=== PATIENT | female | born 1940 | race Caucasian/White ===

== ENCOUNTER 2021-06-19 13:34 | Inpatient (IN) | payer MEDICARE, MEDICAID, SELFPAY ==
[2021-06-19 13:40] VITALS: BP 156/83; RESP 19; TEMP 35.6; BMI 26.5
--- NOTE | 2021-06-19 13:41 | XR_ITS ---
WS: [id number] Exam: XR chest 1V portable [id number] Date/Time of Exam: 06/19/2021 1:54 PM Reason For Exam: dyspnea/cough Comparison 02/22/2018. The lungs are clear and fully expanded. The heart is not enlarged. Mild prominence of the superior me diastinum unchanged. This may be due to technique. No pleural effusions. Regional bony elements are i ntact. XR/XR chest 1V portable [id number] IMPRESSION: 1. No acute cardiopulmonary finding.
--- NOTE | 2021-06-19 13:41 | ECG_ITS ---
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 Measurements Intervals [place] Rate: 126 P: 55 AK: 199 QRS: -50 QRSD: 114 T: 52 QT: 410 QTc: 594 Interpretive Statements SINUS TACHYCARDIA WITH OCCASIONAL VENTRICULAR PREMATURE COMPLEXES RIGHT BUNDLE BRANCH BLOCK LEFT ANTERIOR FASCICULAR BLOCK [QRS AXIS <= -45, QR IN I, RS IN II] Compared to ECG 02/22/2018 14:32:47 Ventricular premature complex(es) now present Left anterior fascicular block now present Sinus rhythm no longer present Electronically Signed On 06-19-2021 16:10:14 DIGITAL INTERN by Jelena Delarosa M.D. [id number]
--- NOTE | 2021-06-19 13:44 | W.ED.GENADLT ---
HPI - General Adult General: Chief complaint: Altered Mental Status Stated complaint: ALOC, weakness, poss UTI Time Seen by Provider: 06/19/21 13:41 History of Present Illness: HPI narrative: 80-year-old female brought in by EMS for altered mental status status weakness. She lives at home with her according to EMS living conditions are deplorable. He has no fever sweats or chills chills she is pleasantly confused she denies any chest pain or shortness of breath. She follows simple commands. Onset (ago): unknown Location: abdomen Severity: severe Quality: aching Pain Consistency: intermittent Relieving factors: none Exacerbating factors: none Associated symptoms: Reports confusion, malaise, nausea and weakness; Deny chest pain, cough, diaphoresis, decreased appetite, dyspnea, fevers/chills, headache(s), seizures, short of breath or vomiting Treatments prior to arrival: none Review of Systems General: Reports: ROS unobtainable due to medical condition (Minimal review of systems due to mental status and confusion) and ROS unobtainable due to mental status Const: Reports: malaise; Denies: diaphoresis Card: Denies: chest pain Resp: Denies: dyspnea GI: Reports: nausea; Denies: vomiting Neuro: Reports: confusion; Denies: headache(s) PFS ED PFSH: Medical History History of hypertension History of recurrent UTIs Surgical History No pertinent past surgical history Social History Smoking and tobacco status: never smoked Alcohol intake: never Substance/Drug Use: never Physical Exam Const: GENERAL APPEARANCE: cooperative and comfortable ORIENTATION/CONSCIOUSNESS: Yes awake HENMT: COMMON NORMALS: normocephalic, atraumatic and hearing grossly normal bilaterally HEAD & SCALP: normocephalic and atraumatic Neck/C-Spine: COMMON NORMALS: no JVD Resp: COMMON NORMALS: normal respiratory effort, No retractions, No use of accessory muscles and clear to auscultation bilaterally AUSCULTATION: clear to auscultation bilaterally Cardio: COMMON NORMALS: no JVD, regular rate, regular rhythm and No murmurs present (Cardio) RATE: regular rate RHYTHM: regular rhythm GI: COMMON NORMALS: No hepatosplenomegaly present AUSCULTATION: Yes normoactive bowel sounds PALPATION: Yes Tenderness to palpation present (GI) (Diffusely tender), No Guarding due to palpation present (GI) and Yes No hepatosplenomegaly present Extremity: COMMON NORMALS: normal to inspection, capillary refill normal, no clubbing, cyanosis or edema, no calf tenderness and no pedal edema Skin: COMMON NORMALS: no rashes or lesions noted GENERAL SKIN EXAM: no rashes or lesions noted Course Vital Signs: Vital signs: Vital Signs Temperature 98.0 F 06/24/21 15:08 Pulse Rate 76 06/24/21 15:08 Respiratory Rate 18 06/24/21 15:08 Blood Pressure 167/76 06/24/21 15:08 Pulse Oximetry 97 06/24/21 15:08 [facility] - General Adult Lab Data: Labs: Lab Results 06/19/21 06/19/21 06/19/21 13:11 13:11 13:11 WBC 26.6 10^3/uL H 10 ^3/uL (4.0-10.0) RBC 6.51 10^6/uL H 10 ^6/uL (4.1-5.3) Hgb 18.4 g/dL H g/dL (11.5-15.3) Hct 57.0 % H % (37.0-47.0) MCV 87.6 fl fl (81-99) MCH 28.3 pg pg (28.0-34.0) MCHC 32.3 g/dL g/dL (30.0-36.0) RDW 13.7 % % (12.1-15.1) Plt Count 251 10^3/cmm 10^3 /cmm (130-400) MPV 13.5 fL H fL (7.4-10.4) Neut % (Auto) 84.3 % % Lymph % (Auto) 4.9 % % [place] % (Auto) 9.4 % % Eos % (Auto) 0.0 % % Baso % (Auto) 0.3 % % Neut # (Auto) 22.39 10^3/uL H 1 0^3/uL (1.8-7.7) Lymph # (Auto) 1.3 10^3/uL 10^3/ uL (0.8-4.8) [place] # (Auto) 2.5 10^3/uL H 10^ 3/uL (0.2-0.9) Eos # (Auto) 0.0 10^3/uL 10^3/ uL (0.0-0.8) Baso # (Auto) 0.1 10^3/uL 10^3/ uL (0.0-0.1) Nucleated RBC % (a uto) 0 % % Nucleated RBCs # 0.0 /100WBC /100W BC Sodium 140 mmol/L mmol/L (136-145) Potassium 3.0 mmol/L L mmol /L (3.5-5.1) Chloride 96 mmol/L L mmol/ L (98-107) Carbon Dioxide 19 mmol/L L mmol/ L (22-29) Anion Gap 28.0 H (5-19) BUN 25 mg/dL H mg/dL (8-23) Creatinine 1.4 mg/dL H mg/dL (0.5-0.9) GFR Calculation Not Reportable Glucose 223 mg/dL H mg/dL (65-115) Estimat Average Gl ucose 120 Hemoglobin A1c 5.8 % % (4.0-6.0) Calculated Osmolal ity 301 mOsm/kg H mOs m/kg (285-295) Lactic Acid Calcium 9.9 mg/dL mg/dL (8.5-10.5) Magnesium 2.4 mg/dL H mg/dL (1.7-2.3) Total Bilirubin 1.2 mg/dL mg/dL (0.15-1.2) AST 27 U/L U/L (0-32) ALT 21 U/L U/L (0-33) Alkaline Phosphata se 104 IU/L IU/L (35-105) Creatine Kinase 419 U/L H* U/L (26-192) C-Reactive Protein NT-Pro-B Natriuret Pep Total Protein 7.8 g/dL g/dL (6.6-8.7) Albumin 3.6 g/dL g/dL (3.5-5.2) Globulin 4.2 g/dL g/dL (1.3-4.6) Lipase 16 U/L U/L (13-60) Procalcitonin Urine Color Urine Appearance Urine pH Ur Specific Gravit y Urine Protein Urine Glucose (UA) Urine Ketones Urine Blood Urine Nitrate Urine Bilirubin Urine Urobilinogen Ur Leukocyte Gini ase Urine RBC Urine WBC Ur Squamous Epith Cells Amorphous Sediment Urine Bacteria Urine Mucus 06/19/21 06/19/21 06/19/21 13:42 14:05 14:15 WBC RBC Hgb Hct MCV MCH MCHC RDW Plt Count MPV Neut % (Auto) Lymph % (Auto) [place] % (Auto) Eos % (Auto) Baso % (Auto) Neut # (Auto) Lymph # (Auto) [place] # (Auto) Eos # (Auto) Baso # (Auto) Nucleated RBC % (a uto) Nucleated RBCs # Sodium Potassium Chloride Carbon Dioxide Anion Gap BUN Creatinine GFR Calculation Glucose Estimat Average Gl ucose Hemoglobin A1c Calculated Osmolal ity Lactic Acid 5.2 mmol/L H* mmo l/L (0.5-2.2) Calcium Magnesium Total Bilirubin AST ALT Alkaline Phosphata se Creatine Kinase C-Reactive Protein 209.1 mg/L H mg/L (0.0-4.9) NT-Pro-B Natriuret Pep 3733 pg/mL H pg/m L (0-450) Total Protein Albumin Globulin Lipase Procalcitonin 0.62 ng/mL H ng/m L (0-0.5) Urine Color Yellow (Yellow) Urine Appearance Cloudy (CLEAR) Urine pH 5 (5-7) Ur Specific Gravit y 1.020 (1.005-1.030) Urine Protein 1+ H (Negative) Urine Glucose (UA) Norm (Normal) Urine Ketones Negative (Negative) Urine Blood 3+ H (Negative) Urine Nitrate Negative (Negative) Urine Bilirubin Neg (Negative) Urine Urobilinogen Norm mg/dL mg/dL (Negative) Ur Leukocyte Igni ase 2+ H (Negative) Urine RBC 5-10 /hpf H /hpf (0-2) Urine WBC 25-40 /hpf H /hpf (0-5) Ur Squamous Epith Cells 0-4 /hpf H /hpf (0-5) Amorphous Sediment Not Reportable Urine Bacteria 4+ /hpf H /hpf (NONE) Urine Mucus 1+ /hpf /hpf Discharge Plan Discharge Patient Disposition: Admitted As Inpatient Admit Provider: Jame Elliott Clinical Impression: UTI (urinary tract infection), Severe sepsis, Acute encephalopathy, Acute kidney injury, Rhabdomyolysis Condition: Stable Discharge Diet: Regular Discharge Activity: Increase activity as tolerated 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
[2021-06-19 13:52] LABS: Basophils # 0.1 10^3/uL (0.0-0.1); Basophils % 0.3 %; Hemoglobin 18.4 g/dL (11.5-15.3); Lymphocytes # 1.3 10^3/uL (0.8-4.8); Lymphocytes % 4.9 %; Mean Corpuscular HGB Conc 32.3 g/dL (30.0-36.0); Mean Corpuscular Hemoglobin 28.3 pg (28.0-34.0); Mean Corpuscular Volume 87.6 fl (81-99); Mean Platelet Volume 13.5 fL (7.4-10.4); Monocytes # 2.5 10^3/uL (0.2-0.9); Monocytes % 9.4 %; Neutrophils # 22.39 10^3/uL (1.8-7.7); Neutrophils % 84.3 %; Nucleated Red Blood Cells % 0 %; Platelet Count 251 10^3/cmm (130-400); Red Blood Count 6.51 10^6/uL (4.1-5.3); Red Cell Distribution Width 13.7 % (12.1-15.1); White Blood Count 26.6 10^3/uL (4.0-10.0)
[2021-06-19 14:13] LABS: Alanine Aminotransferase 21 U/L (0-33); Albumin Level 3.6 g/dL (3.5-5.2); Alkaline Phosphatase 104 IU/L (35-105); Aspartate Amino Transferase 27 U/L (0-32); Blood Urea Nitrogen 25 mg/dL (8-23); Calcium 9.9 mg/dL (8.5-10.5); Carbon Dioxide 19 mmol/L (22-29); Chloride 96 mmol/L (98-107); Globulin 4.2 g/dL (1.3-4.6); Glucose 223 mg/dL (65-115); Lipase 16 U/L (13-60); Magnesium 2.4 mg/dL (1.7-2.3); Osmolality Calculated 301 mOsm/kg (285-295); Sodium 140 mmol/L (136-145); Total Bilirubin 1.2 mg/dL (0.15-1.2); Total Protein 7.8 g/dL (6.6-8.7)
[2021-06-19 14:17] LABS: Creatine Phosphokinase 419 U/L (26-192)
[2021-06-19 14:25] LABS: Bilirubin Urine Neg (Negative); Blood Urine 3+ (Negative); Glucose Urine UA Norm (Normal); Ketones Urine Negative (Negative); Nitrate Urine Negative (Negative); Protein Urine 1+ (Negative); Urine Appearance Cloudy (CLEAR); Urine Color Yellow (Yellow); pH Urine 5 (5-7)
[2021-06-19 14:26] LABS: Add Urine Culture? Yes; Add Urine Microscopic? YES; Bacteria Urine 4+ /hpf; Leukocyte Esterase Urine 2+ (Negative); Mucus Urine 1+ /hpf; Squamous Epithelial Cell Urine 0-4 /hpf (0-5); Urobilinogen Urine Norm (Negative); WBC Urine 25-40 /hpf (0-5)
--- NOTE | 2021-06-19 14:34 | PC.PHAR ---
PTS STATES THE PT DOESNT TAKE ANY RX OR OTC MEDICATIONS- STATES THE PT HASNT TAKEN A ASPIRIN IN MONTHS AND STATES SHE USE TO TAKE BP MEDS BUT HASNT TAKEN IN YEARS-PTS STATES HE THINKS THE PT NEEDS TO GO TO A GROUP HOME STATES HE CANT TAKE CARE OF HER ANY MORE-TOLD STU RN IN THE ED STATES SHE WILL LET THE NURSE KNOW AND CASE MANAGEMENT SHOULD CONTACT THE
[2021-06-19 14:49] LABS: Lactic Sepsis W/Reflex 5.2 mmol/L (0.5-2.2)
[2021-06-19 14:50] VITALS: BP 186/94; PULSE 93; RESP 16; O2SAT 92
[2021-06-19] MEDS: sodium chloride 0.9% 1,000 ML 999 ML IV (14:59)
[2021-06-19 16:07] LABS: Reflex Lactate Order REFLEX LACTIC ORDERD
[2021-06-19 17:59] LABS: ABG PCO2 27.6 mmHg (35-45); ABG PH Result 7.48 (7.35-7.45); Base Excess ABG -1.6 mmol/L (-2.0-2.0); Blood Gas Allen Test Pos; Blood Gas Operator Identificat CAK; Blood Gas Sample Site Radial, left; Blood Gas Sample Type Arterial; HCO3 ABG 20.4 mmol/L (22-26); Oxygen Device ROOM AIR; PO2 ABG 64.6 mmHg (80.0-100.0)
[2021-06-19] MEDS: lidocaine 1% 5 ML in potassium chloride premix 100 ML 25 ML IV (18:01)
[2021-06-19 18:06] LABS: Lactic Acid level (Lactate) 3.7 mmol/L (0.5-2.2)
[2021-06-19] MEDS: cefTRIAXone 2,000 MG in sodium chloride 0.9% (plus) 50 ML 100 MG IV (18:06)
--- NOTE | 2021-06-19 18:09 | PM.HP ---
Providers/Chief Complaint Chief Complaint: ALOC, weakness, poss UTI History of Present Illness Beth Manzo is a 80 year old female with a past medical history of hypertension, dementia, who presents to [facility] due to weakness and altered mental status. Currently patient is alert, does not follow commands, does not know the date, does not know the time, does not know who the president is, cannot answer questions, she does have spontaneous movement upper and lower extremities, pupils are equal round reactive to light, does pull away from the light, blood pressure 186/94, pulse 93, respiratory 16, saturation 92% on room air, maintaining her airway. Most of the history was obtained by , tells me that patient has history of dementia, recently she is becoming more forgetful, has had profound short-term memory loss such that he has to repeat himself to her every 5 minutes, he tells me that she is becoming more weak, and now she is not able to walk so he cannot take care of her, that is why he sent her to the emergency room because he cannot take care of her she still profoundly weak and more forgetful. He thinks that she needs to go to the assisted. No recent fevers, no cough, no new exposure to COVID-19. No history of heart attacks to his knowledge. No history of strokes to his knowledge. No history of diabetes to his knowledge. She does have recurrent urinary tract infections he tells me, she gets them frequently, but she has not seen a physician in a long time, in many years, he denies a history of nephrolithiasis or kidney stones. In the emergency room patient was found to have severe sepsis secondary to UTI, white blood cell count 26.6, lactic acid 5.2, anion gap 28, ketones negative, creatinine 1.4, blood sugar 223, CPK 419, after fluid boluses repeat lactic acid 3.7, she remains hypertensive, no tachycardia, on room air. UA with evidence of UTI. Chest x-ray no focal pneumonia. Review of Systems General: Reports: ROS unobtainable due to medical condition Medications/Allergies Home Medications Medication Instructions Recorded Confirmed Last Taken Type No Known Home Medications 06/19/21 06/19/21 Unknown History Allergies Allergy/AdvReac Type Severity Reaction Status Date / Time No Known Allergies Allergy Verified 06/19/21 14:36 Additional Medication Information does not know any pertinent family history does not know any pertinent surgical history PFSH Acute PFSH: Medical History (Updated 06/19/21 @ 18:18 by Jame Elliott MD) History of hypertension History of recurrent UTIs Surgical History (Updated 06/19/21 @ 18:13 by Jame Elliott MD) No pertinent past surgical history Social History (Updated 06/19/21 @ 18:14 by Jame Elliott MD) Smoking and tobacco status: never smoked Alcohol intake: never Substance/Drug Use: never Vitals/I&O/Wt Last Vital Signs Temp 96.1 F L 06/19/21 13:40 Pulse 93 06/19/21 14:50 Resp 16 06/19/21 14:50 BP 186/94 06/19/21 14:50 Pulse Ox 92 06/19/21 14:50 06/19/21 06/19/21 06/19/21 06:59 14:59 22:59 Intake Total 1000 / 1000 Balance 1000 / 1000 Weight last 48 hrs Weight 65.771 kg Physical Exam Const: COMMON NORMALS: no acute distress GENERAL APPEARANCE: cooperative and comfortable ORIENTATION/CONSCIOUSNESS: Yes awake and Yes confused; not oriented to person, not oriented to place and not oriented to time HENMT: COMMON NORMALS: normocephalic HEAD & SCALP: normocephalic Eye: COMMON NORMALS: Equal, round and reactive pupils present and EOMs intact bilaterally GENERAL EYE: appearance normal, both eyes and all related structures PUPIL: Yes Equal, round and reactive pupils present Neck/C-Spine: COMMON NORMALS: full ROM and no lymphadenopathy THYROID: Thyroid normal Lymph: LYMPHATIC: no lymphadenopathy noted Resp: COMMON NORMALS: normal respiratory effort, No retractions, No use of accessory muscles and clear to auscultation bilaterally AUSCULTATION: clear to auscultation bilaterally Cardio: COMMON NORMALS: regular rate, regular rhythm, S1 normal heart sound present, S2 normal heart sound present, No gallops present (Cardio), No clicks present (Cardio) and No murmurs present (Cardio) RATE: regular rate RHYTHM: regular rhythm HEART SOUNDS: S1 normal heart sound present and S2 normal heart sound present GI: COMMON NORMALS: Normal to inspection, nondistended, normoactive bowel sounds present, Soft to palpation and non-tender Extremity: COMMON NORMALS: no pedal edema Neuro: COMMON NORMALS: moves all extremities Urinary Catheter Management^: Triplett: Cath Placed During This Visit: yes Urinary Catheter Date of Insertion: 06/19/21 Urinary Catheter Time of Insertion: 14:10 Data : 06/19/21 13:11 06/19/21 13:11 Micro: Microbiology 06/19/21 15:55 Blood Culture - Preliminary Blood SPECIMEN COLLECTED 06/19/21 15:40 Blood Culture - Preliminary Blood SPECIMEN COLLECTED A&P Assessment and plan (1) Severe sepsis: -Secondary to UTI -With ELVA -Room with rhabdomyolysis -With increased anion gap, normal pH, normal ketones, hyperglycemia -Dehydration -Lactic acidosis Plan: -CT scan abdomen pelvis to evaluate for obstructive uropathy and/or pyelonephritis -CT of the head given altered mental status -A1c, BMP, pro-Bobby, CRP -Follow urine cultures, blood cultures -Keep n.p.o., monitor mentation -Monitor blood sugars, monitor A1c -Vancomycin, Zosyn -Monitor blood pressures, maintain MAP more than 65, currently hypertensive -Gentle IV hydration -For now full code -Lovenox for DVT prophylaxis Status: Acute (2) Lactic acidosis: Status: Acute (3) UTI (urinary tract infection): Status: Acute (4) Hyperglycemia: Status: Acute (5) Acute kidney injury: Status: Acute (6) Rhabdomyolysis: Status: Acute (7) Acute encephalopathy: Status: Acute Attestations Medical Necessity Statement*: Patient requires hospitalization for severe sepsis secondary to UTI, lactic acidosis, acute encephalopathy Coding Level of Care Code 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
[2021-06-19 18:10] LABS: Ketone (Acetest) Serum Negative (Negative)
[2021-06-19 18:16] LABS: NT Pro B Type Natriuretic Pept 3733 pg/mL (0-450); Procalcitonin 0.62 ng/mL (0-0.5)
--- NOTE | 2021-06-19 18:19 | CTR_ITS ---
PROCEDURE INFORMATION: Exam: CT Abdomen And Pelvis Without Contrast Exam date and time: 06/19/2021 6:19 PM Age: 80 years old Clinical indication: Other: UTI, AMS; Additional info: UTI, sepsis TECHNIQUE: Imaging protocol: Computed tomography of the abdomen and pelvis without contrast. Radiation optimization: All CT scans at this facility use at least one of these dose optimization techniques: automated exposure control; mA and/or kV adjustment per patient size (includes targeted exams where dose is matched to clinical indication); or iterative reconstruction. COMPARISON: CR XR chest 1V portable [id number] 06/19/2021 2:43 PM RADIATION DOSE METRICS: Total DLP (mGy-cm): 1390.69 FINDINGS: Lungs: Mild atelectasis in the lung bases. Pleural spaces: Trace pleural effusions. Heart: Coronary artery calcifications. Diaphragm: Hiatal hernia. Liver: Normal. No mass. Gallbladder and bile ducts: Multiple calcified stones in the gallbladder. No visible wall thickening. The bile ducts are normal. Pancreas: Normal. No ductal dilation. Spleen: Calcified granuloma in the spleen. Adrenal glands: 2.2 cm low-density nodule in the right adrenal gland, Hounsfield units measuring 10 or less. The left adrenal is normal. Kidneys and ureters: The mild perinephric stranding is most likely chronic. The kidneys are otherwise unremarkable. No calculus or hydronephrosis. Stomach and bowel: Diverticulosis of the distal colon without diverticulitis. The small bowel is unremarkable. No wall thickening or obstruction. Appendix: The appendix is not visualized. No secondary signs of appendicitis. Intraperitoneal space: Unremarkable. No free air. No significant fluid collection. Vasculature: Atherosclerotic calcifications. No aneurysm. Lymph nodes: Unremarkable. No enlarged lymph nodes. Urinary bladder: Triplett catheter in a decompressed urinary bladder. No visible wall thickening. Reproductive: The uterus and ovaries are absent. Bones/joints: Mild degenerative changes of the spine. No acute fracture. Soft tissues: Small fat containing right inguinal hernia. Subcutaneous fat stranding and skin thickening in the posterior right flank region. CT/CT kidney stone [id number] IMPRESSION: 1. Mild perinephric stranding is most likely chronic and physiologic. Pyelonephritis cannot be entirely excluded. Clinical correlation recommended. 2. Cholelithiasis. 3. Diverticulosis of the distal colon. 4. Skin thickening and subcutaneous fat stranding in the posterior right flank region. Cellulitis is not excluded. 5. Probable 2.2 cm adenoma in the right adrenal gland. COMMENTS: Consistent with the [employer]'s Incidental Findings Committee white paper (J Am Jane Radiol 2017): For any incidental adrenal lesion greater than 1 cm but less than 4 cm classified in this report as benign, likely benign, or containing fat (including classification as an adenoma or myelolipoma), no follow-up imaging is recommended per consensus recommendations based on imaging criteria. Further lab evaluation could be pursued if warranted based on clinical findings. Radiation Dose CTDIVOL = (mGy): DLP = 1390.69 (mGy-cm)
--- NOTE | 2021-06-19 18:20 | CTR_ITS ---
PROCEDURE INFORMATION: Exam: CT Head Without Contrast Exam date and time: 06/19/2021 6:20 PM Age: 80 years old Clinical indication: Altered mental status/memory loss; Additional info: AMS TECHNIQUE: Imaging protocol: Computed tomography of the head without contrast. Radiation optimization: All CT scans at this facility use at least one of these dose optimization techniques: automated exposure control; mA and/or kV adjustment per patient size (includes targeted exams where dose is matched to clinical indication); or iterative reconstruction. 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 Mild atrophy and mild white matter chronic microvascular changes are noted. No hemorrhage or evidence of acute infarction. Cerebral ventricles: No ventriculomegaly. Paranasal sinuses: Visualized sinuses are unremarkable. No fluid levels. Mastoid air cells: Visualized mastoid air cells are well aerated. Bones/joints: Unremarkable. No acute fracture. Soft tissues: Unremarkable. CT/CT head wo con* [id number] IMPRESSION: No acute intracranial abnormality Radiation Dose CTDIVOL = (mGy): DLP = 1760.24 (mGy-cm)
[2021-06-19 18:27] LABS: C Reactive Protein 209.1 mg/L (0.0-4.9)
[2021-06-19 19:18] VITALS: BP 183/79; PULSE 98; RESP 16; O2SAT 94
--- NOTE | 2021-06-19 20:07 | PC.NURSE ---
PT. removed her IV from her left arm. Pt. is confused and very pleasant , but does not know what is going on. Restraints were ordered by Dr. Marcum and applied for the patients safety.
[2021-06-19 20:30] LABS: Estmated Average Glucose 120; Hemoglobin A1C 5.8 % (4.0-6.0)
[2021-06-19 21:07] LABS: Thyroid Stimulating Hormone 6.54 uIU/mL (0.27-4.20)
[2021-06-19] MEDS: sodium chlor 0.9% + KCl 20 mEq 20 MEQ/1,000 ML BAG 125 MEQ IV (21:10)
[2021-06-19] MEDS: famotidine 20 mg/2 mL INJ IVP (21:11)
[2021-06-19] MEDS: enoxaparin 30 mg/0.3 mL Syringe SUBCUT (21:11)
[2021-06-19] MEDS: vancomycin 1,000 MG in sodium chloride 0.9% 250 ML 250 MG IV (22:31)
[2021-06-20] VITALS (8 sets, daily range): BP systolic 126–162; BP diastolic 62–74; PULSE 65–83; RESP 14–18; TEMP 36.5–37.3; O2SAT 90–99
[2021-06-20] MEDS: piperacillin-tazobactam 3.375 GM in sodium chloride 0.9% (plus) 50 ML IV ×4 (00:59→23:34)
--- NOTE | 2021-06-20 03:45 | XRR_ITS ---
PROCEDURE INFORMATION: Exam: XR Left Hip Exam date and time: 06/20/2021 3:45 AM Age: 80 years old Clinical indication: Hip pain; Left hip; Patient HX: Pain with bruising. No known injury. Patient in soft restraints. Best films obtained. TECHNIQUE: Imaging protocol: XR Left hip. Views: 2 or 3 views hip with pelvis when performed. COMPARISON: No relevant prior studies available. FINDINGS: Bones/joints: There is no acute fracture or dislocation. If symptoms persist, follow-up imaging in several days may be useful to exclude an occult fracture. No other significant acute bone or joint abnormality. Mild arthritic changes involving the left hip. Soft tissues: No significant acute finding. XR/XR hip LT 2-3V wo/w pel* [id number] IMPRESSION: No acute fracture or dislocation. Radiation Dose CTDIVOL = (mGy): DLP = (mGy-cm)
--- NOTE | 2021-06-20 04:14 | PC.NURSE ---
Complete bed bath performed with 2 nurse assist. Patient cried out in pain with left hip. Bruising noted to left hip. Physician notified with orders given.
[2021-06-20] MEDS: sodium chlor 0.9% + KCl 20 mEq 20 MEQ/1,000 ML BAG 125 MEQ IV ×2 (05:23→17:28)
[2021-06-20 06:58] LABS: Glucose Point of Care 102 mg/dL (70-110)
[2021-06-20 07:39] LABS: Basophils % 0.3 %; Eosinophils % 0.1 %; Hematocrit 45.4 % (37.0-47.0); Hemoglobin 14.8 g/dL (11.5-15.3); Lymphocytes # 1.8 10^3/uL (0.8-4.8); Lymphocytes % 12.2 %; Mean Corpuscular HGB Conc 32.6 g/dL (30.0-36.0); Mean Corpuscular Hemoglobin 28.8 pg (28.0-34.0); Mean Corpuscular Volume 88.3 fl (81-99); Mean Platelet Volume 13.6 fL (7.4-10.4); Monocytes # 1.6 10^3/uL (0.2-0.9); Monocytes % 10.4 %; Neutrophils # 11.38 10^3/uL (1.8-7.7); Neutrophils % 76.5 %; Nucleated Red Blood Cells % 0 %; Platelet Count 163 10^3/cmm (130-400); Red Blood Count 5.14 10^6/uL (4.1-5.3); Red Cell Distribution Width 14.1 % (12.1-15.1); White Blood Count 14.9 10^3/uL (4.0-10.0)
[2021-06-20 08:02] LABS: Lactic Sepsis W/Reflex 1.1 mmol/L (0.5-2.2)
[2021-06-20 08:30] LABS: Alanine Aminotransferase 17 U/L (0-33); Albumin Level 2.7 g/dL (3.5-5.2); Alkaline Phosphatase 87 IU/L (35-105); Anion Gap 13.8 (5-19); Aspartate Amino Transferase 26 U/L (0-32); Blood Urea Nitrogen 32 mg/dL (8-23); Calcium 8.8 mg/dL (8.5-10.5); Carbon Dioxide 21 mmol/L (22-29); Chloride 110 mmol/L (98-107); Globulin 3.2 g/dL (1.3-4.6); Glucose 113 mg/dL (65-115); Magnesium 2.2 mg/dL (1.7-2.3); Osmolality Calculated 300 mOsm/kg (285-295); Potassium 3.8 mmol/L (3.5-5.1); Sodium 141 mmol/L (136-145); Total Bilirubin 0.6 mg/dL (0.15-1.2); Total Protein 5.9 g/dL (6.6-8.7)
[2021-06-20 08:34] LABS: Estmated Average Glucose 114; Hemoglobin A1C 5.6 % (4.0-6.0)
[2021-06-20] MEDS: lidocaine 5% Patch 1 PATCH TOPICAL (08:58)
[2021-06-20] MEDS: famotidine 20 mg/2 mL INJ IVP ×3 (09:16→20:44)
[2021-06-20 11:04] LABS: Glucose Point of Care 97 mg/dL (70-110)
--- NOTE | 2021-06-20 16:49 | PM.PN ---
Subjective Subjective: Interval history: Patient was seen this morning, she is quite sleepy, she does arouse, she tells me that she is doing okay, she is able to follow some commands, but is alert to person, not to place, not to time, afebrile overnight, normotensive, good urine output, overnight she did have a fall, no head trauma, no loss of consciousness hip x-ray was unremarkable, she had no pain complaints this morning Vitals/I&O/Wt Last Vital Signs Temp 98.1 F 06/20/21 16:00 Pulse 80 06/20/21 16:00 Resp 16 06/20/21 16:00 BP 149/70 06/20/21 16:00 Pulse Ox 94 06/20/21 16:00 06/20/21 06/20/21 06/20/21 06:59 14:59 22:59 Intake Total 1400 / 2450 155 / 155 1000 / 1155 Balance 1400 / 1750 155 / 155 1000 / 1155 Weight last 48 hrs Weight 65.771 kg Physical Exam Const: COMMON NORMALS: no acute distress ORIENTATION/CONSCIOUSNESS: Yes awake and Yes oriented to person; not oriented to place and not oriented to time Resp: COMMON NORMALS: normal respiratory effort, No retractions, No use of accessory muscles and clear to auscultation bilaterally AUSCULTATION: clear to auscultation bilaterally Cardio: COMMON NORMALS: regular rate, regular rhythm, S1 normal heart sound present and S2 normal heart sound present RATE: regular rate RHYTHM: regular rhythm HEART SOUNDS: S1 normal heart sound present and S2 normal heart sound present GI: COMMON NORMALS: Normal to inspection, nondistended, normoactive bowel sounds present, Soft to palpation and non-tender PALPATION: Yes Soft to palpation Extremity: COMMON NORMALS: no pedal edema Neuro: SENSORIUM/ORIENTATION: Yes oriented to person, No oriented to place and No oriented to time Urinary Catheter Management^: Triplett: Cath Placed During This Visit: yes Reason for Continuing Indwelling Catheter: Assist Healing of Perineal & Sacral Wounds- Incontinent Patients Urinary Catheter Date of Insertion: 06/19/21 Urinary Catheter Time of Insertion: 14:10 Data : 06/20/21 06:57 06/20/21 06:57 Micro: Microbiology 06/19/21 15:55 Blood Culture - Preliminary Blood NEGATIVE TO DATE 11/19/21 15:40 Blood Culture - Preliminary Blood NEGATIVE TO DATE 06/19/21 14:05 Urine Culture - Preliminary Urine,Clean Catch Gram Negative Rods A&P Assessment and plan (1) Severe sepsis: -Secondary to UTI -With ELVA -Room with rhabdomyolysis -With increased anion gap, normal pH, normal ketones, hyperglycemia -Dehydration -Lactic acidosis -CT scan abdomen pelvis mild perinephric stranding Plan -Follow urine cultures, blood cultures -Keep n.p.o., monitor mentation -Vancomycin, Zosyn -Monitor blood pressures, maintain MAP more than 65, currently hypertensive -Gentle IV hydration -For now full code -Lovenox for DVT prophylaxis Status: Acute (2) Lactic acidosis: Status: Acute (3) UTI (urinary tract infection): Status: Acute (4) Hyperglycemia: Status: Acute (5) Acute kidney injury: Status: Acute (6) Rhabdomyolysis: Status: Acute (7) Acute encephalopathy: Status: Acute (8) Pyelonephritis due to Escherichia coli: Status: Acute Attestations Medical Necessity Statement*: Patient requires hospitalization, inpatient, greater than 2 minutes, for severe sepsis sec to UTI, pyelonephritis, Coding Level of Care Code 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
--- NOTE | 2021-06-20 16:59 | USR_ITS ---
PROCEDURE INFORMATION: Exam: US Retroperitoneal; Complete; Kidneys and Bladder Exam date and time: 06/20/2021 4:59 PM Age: 80 years old Clinical indication: Other: UTI, sepsis TECHNIQUE: Imaging protocol: Real-time ultrasound of the retroperitoneum with image documentation. Complete exam focused on the kidneys and bladder. COMPARISON: CT kidney stone [id number] 06/19/2021 6:40 PM FINDINGS: Gallbladder: A couple shadowing gallstones noted in the gallbladder body measuring up to 2.3 cm in size. Right kidney: Renal cortex echogenicity is within normal limits. The right kidney measures 8.9 cm in length. No evident stones. No hydronephrosis. Left kidney: Renal cortex echogenicity is within normal limits. The left kidney measures 9.7 cm in length. No evident stones. No hydronephrosis. Urinary bladder: Triplett catheter noted within a decompressed bladder. US/US renal BI* [id number] IMPRESSION: 1. Unremarkable kidneys and bladder. 2. Cholelithiasis. Radiation Dose CTDIVOL = (mGy): DLP = (mGy-cm)
[2021-06-20] MEDS: dextrose 50% syringe 50 mL IVP (17:05)
[2021-06-20 17:14] LABS: Glucose Point of Care 68 mg/dL (70-110)
[2021-06-20 17:32] LABS: Glucose Point of Care 127 mg/dL (70-110)
--- NOTE | 2021-06-20 19:14 | PC.NURSE ---
ROUNDING New IV placed at shift change. Picking at it already and needs redirection often to keep from pulling it back out. Otherwise is pleasant and cooperative. Will be pts nurse/1:1 liyah culver
[2021-06-20] MEDS: enoxaparin 30 mg/0.3 mL Syringe SUBCUT (20:11)
--- NOTE | 2021-06-20 20:39 | PC.NURSE ---
CONFUSION/AGITATION Very confused and wanting to get up to go to her bed. Arguing with nurse and not accepting that she is in the hospital and in bed already. Needs frequent redirecton to keep from pulling IV out. Also was pulling on her catheter
[2021-06-20 21:17] LABS: Glucose Point of Care 111 mg/dL (70-110)
[2021-06-21] MEDS: sodium chlor 0.9% + KCl 20 mEq 20 MEQ/1,000 ML BAG 125 MEQ IV (01:44)
[2021-06-21 03:40] VITALS: BP 153/75; PULSE 85; RESP 16; TEMP 36.8
--- NOTE | 2021-06-21 05:09 | PC.NURSE ---
SHIFT SUMMARY Has been very confused tonight. Tries to take IV and catheter out and has been repeatedly redirected for this. Gets agitated with nurse for not getting a knife and cutting them loose. Is quite pleasant most of the time. Kept thinking she needed to get up and go to bed. Has not slept. Eyes closed few times and thought she was going to sleep but then awake. Hears any little noise. IV infusing at 125ml/hr rate. Was up to BSC X1 with max assist for BM then later incont of BM with CLC done. Does not like to be moved or turned and refusing to stay off right buttock where where she has a very reddened area and small skin break. Always says she can move by herself but then will not move.
[2021-06-21] MEDS: acetaminophen 325 mg Tablet 650 MG PO ×2 (05:40→13:07)
[2021-06-21 07:08] LABS: Glucose Point of Care 94 mg/dL (70-110)
[2021-06-21 08:00] VITALS: BP 128/87; PULSE 74; RESP 16; TEMP 36.4; O2SAT 99
[2021-06-21] MEDS: vancomycin 1,000 MG in sodium chloride 0.9% 250 ML 250 MG IV (08:06)
[2021-06-21] MEDS: lidocaine 5% Patch 1 PATCH TOPICAL (08:23)
[2021-06-21] MEDS: piperacillin-tazobactam 3.375 GM in sodium chloride 0.9% (plus) 50 ML IV ×2 (09:24→17:40)
[2021-06-21] MEDS: famotidine 20 mg/2 mL INJ IVP ×2 (09:39→19:54)
[2021-06-21 11:04] VITALS: BP 168/82; PULSE 77; RESP 15; TEMP 36.3; O2SAT 100
[2021-06-21 11:21] LABS: Glucose Point of Care 87 mg/dL (70-110)
--- NOTE | 2021-06-21 15:19 | P.PN_ITS ---
Subjective Subjective: Interval history: Patient was seen this morning, daughter, and granddaughter are at bedside, she is alert to person, not to place, not to time, she follows commands, no complaints overnight, no fevers, chills, no nausea, no vomiting Vitals/I&O/Wt Last Vital Signs Temp 97.4 F L 06/21/21 11:04 Pulse 77 06/21/21 11:04 Resp 15 06/21/21 11:04 BP 168/82 06/21/21 11:04 Pulse Ox 100 06/21/21 11:04 06/21/21 06/21/21 06/21/21 06:59 14:59 22:59 Intake Total 1290 / 2695 1498.333 / 1498.333 Output Total 1650 / 1650 850 / 850 Balance -360 / 1045 648.333 / 648.333 Physical Exam Const: COMMON NORMALS: no acute distress ORIENTATION/CONSCIOUSNESS: Yes awake and Yes oriented to person; not oriented to place and not oriented to time Neck/C-Spine: COMMON NORMALS: no JVD Resp: COMMON NORMALS: normal respiratory effort, No retractions, No use of accessory muscles and clear to auscultation bilaterally AUSCULTATION: clear to auscultation bilaterally Cardio: COMMON NORMALS: no JVD, regular rate, regular rhythm, S1 normal heart sound present and S2 normal heart sound present RATE: regular rate RHYTHM: regular rhythm HEART SOUNDS: S1 normal heart sound present and S2 normal heart sound present GI: COMMON NORMALS: Normal to inspection, nondistended, normoactive bowel sounds present, Soft to palpation and non-tender PALPATION: Yes Soft to palpation Extremity: COMMON NORMALS: no pedal edema Neuro: SENSORIUM/ORIENTATION: Yes oriented to person, No oriented to place and No oriented to time Psych: COMMON NORMALS: mental status grossly normal Urinary Catheter Management^: Triplett: Cath Placed During This Visit: yes Reason for Continuing Indwelling Catheter: Assist Healing of Perineal & Sacral Wounds- Incontinent Patients Urinary Catheter Date of Insertion: 06/19/21 Urinary Catheter Time of Insertion: 14:10 Data : 06/20/21 06:57 06/20/21 06:57 Micro: Microbiology 06/19/21 14:05 Urine Culture - Final Urine,Clean Catch Escherichia coli 06/19/21 15:55 Blood Culture - Preliminary Blood NEGATIVE TO DATE 06/19/21 15:40 Blood Culture - Preliminary Blood NEGATIVE TO DATE A&P Assessment and plan (1) Severe sepsis: -Secondary to UTI -With ELVA -with rhabdomyolysis -With increased anion gap, normal pH, normal ketones, hyperglycemia -Dehydration -Lactic acidosis -CT scan of the abdomen pelvis shows mild perinephric stranding Plan: -Follow urine cultures shows E. coli pansensitive, blood cultures negative to date -Advance diet as tolerated, soft mechanical diet -Stop vancomycin, continue Zosyn -Monitor blood pressures, maintain MAP more than 65, currently hypertensive -Stop IV hydration -For now full code -Lovenox for DVT prophylaxis -PT OT, speech therapy -Working on placement to care home Status: Acute (2) Lactic acidosis: Status: Acute (3) UTI (urinary tract infection): Status: Acute (4) Hyperglycemia: Status: Acute (5) Acute kidney injury: Status: Acute (6) Rhabdomyolysis: Status: Acute (7) Acute encephalopathy: Status: Acute (8) Pyelonephritis due to Escherichia coli: Status: Acute Attestations Medical Necessity Statement*: Patient requires hospitalization due to UTI, pyelonephritis Coding Level of Care Code Acute Assistant Professor Sculpture for [facility] Fwd Diagnoses Severe sepsis A41.9; R65.20 Lactic acidosis E87.2 UTI (urinary tract infection) N39.0 Hyperglycemia R73.9 Acute kidney injury N17.9 Rhabdomyolysis M62.82 Acute encephalopathy G93.40 Pyelonephritis due to Escherichia coli N12; B96.20
[2021-06-21 16:00] VITALS: BP 135/62; PULSE 65; RESP 16; TEMP 36.9; O2SAT 99
[2021-06-21 17:23] LABS: Glucose Point of Care 154 mg/dL (70-110)
--- NOTE | 2021-06-21 19:41 | PC.NURSE ---
nurse notified dr of pt BS of 152 with no sliding scale in place and dr informed this nurse that BS will be monitored and to call if they are greater than 200.
--- NOTE | 2021-06-21 19:43 | PC.NURSE ---
was notified that sore to right hip of pt had opened and this nurse asked what drsg to cover with, stated to cover with optifoam.
[2021-06-21 19:48] VITALS: BP 160/63; PULSE 64; RESP 18; TEMP 36.3; O2SAT 99
[2021-06-21] MEDS: enoxaparin 30 mg/0.3 mL Syringe SUBCUT (19:53)
[2021-06-21 20:39] LABS: Glucose Point of Care 138 mg/dL (70-110)
--- NOTE | 2021-06-21 21:43 | PC.NURSE ---
Pt very fidgety, pulling at lambert catheter & iv, states i just don't know what to do . Nurse tries to distract patient, this lasts for just a few minutes & patient is back at trying to pull at lines. Will continue to attempt to orientate pt.
[2021-06-22] VITALS (8 sets, daily range): BP systolic 132–176; BP diastolic 56–79; PULSE 52–77; RESP 16–20; TEMP 36.2–37.1; O2SAT 96–99
[2021-06-22] MEDS: piperacillin-tazobactam 3.375 GM in sodium chloride 0.9% (plus) 50 ML IV ×2 (01:22→09:12)
[2021-06-22 06:22] LABS: Glucose Point of Care 93 mg/dL (70-110)
--- NOTE | 2021-06-22 07:03 | PC.NURSE ---
Addendum entered by Roberto Fitzgerald RN 06/22/21 07:17: Pt alert and oriented to place only. Pt made getting vs quite difficult attempting to pull everything off. VSS. Pt redirected. Will monitor. Original Note: Report received, assessment completed. Pt sleeping at this time. Lung sounds clear, BS active. Triplett cath draining freely to BSD. No issues noted. Will monitor.
[2021-06-22] MEDS: famotidine 20 mg/2 mL INJ IVP (08:23)
[2021-06-22] MEDS: lidocaine 5% Patch 1 PATCH TOPICAL (08:24)
--- NOTE | 2021-06-22 10:37 | PC.OT ---
OT EVALUATION ATTEMPTED. PATIENT DOES NOT AWAKEN TO PARTICIPATE. WILL ATTEMPT AGAIN TOMORROW.
--- NOTE | 2021-06-22 10:59 | PC.SOCIAL ---
IMM update IMM updated with via telephone. Verbalized an understanding. Initialled, dated, timed, and placed in chart.
[2021-06-22 11:34] LABS: Glucose Point of Care 93 mg/dL (70-110)
[2021-06-22] MEDS: acetaminophen 325 mg Tablet 650 MG PO (12:24)
--- NOTE | 2021-06-22 14:51 | P.PN_ITS ---
Subjective Subjective: Interval history: Patient was seen and examined this morning, resting comfortably in bed, no acute events overnight, patient is a hard stick labs could not be drawn. Medications: Reviewed: Yes Vitals/I&O/Wt Last Vital Signs Temp 97.2 F L 06/22/21 12:00 Pulse 62 06/22/21 12:00 Resp 18 06/22/21 12:00 BP 137/77 06/22/21 12:00 Pulse Ox 96 06/22/21 11:11 06/21/21 06/22/21 06/22/21 22:59 06:59 14:59 Intake Total 590 / 2088.333 290 / 2378.333 770 / 770 Output Total 250 / 1100 300 / 1400 Balance 340 / 988.333 -10 / 978.333 770 / 770 Physical Exam Narrative: EXAM NARRATIVE: Alert and awake HENMT: COMMON NORMALS: normocephalic and atraumatic HEAD & SCALP: normoceph alic and atraumatic Resp: COMMON NORMALS: clear to auscultation bilaterally AUSCULTATION: clear to auscultation bilaterally Cardio: COMMON NORMALS: regular rate, regular rhythm, S1 normal heart sound present, S2 normal heart sound present, No gallops present (Cardio), No murmurs present (Cardio), No rub (Cardio) and Peripheral pulses 2+ throughout RATE: regular rate RHYTHM: regular rhythm HEART SOUNDS: S1 normal heart sound present and S2 normal heart sound present PERIPHERAL PULSES: Peripheral pulses 2+ throughout GI: COMMON NORMALS: Normal to inspection, nondistended, normoactive bowel sounds present, Soft to palpation, non-tender, No hepatosplenomegaly present and no masses AUSCULTATION: Yes normoactive bowel sounds PALPATION: Yes Soft to palpation and Yes No hepatosplenomegaly present RECTAL EXAM: deferred Extremity: COMMON NORMALS: no clubbing, cyanosis or edema and no pedal edema Urinary Catheter Management^: Triplett: Cath Placed During This Visit: yes Reason for Continuing Indwelling Catheter: Assist Healing of Perineal & Sacral Wounds- Incontinent Patients Urinary Catheter Date of Insertion: 06/19/21 Urinary Catheter Time of Insertion: 14:10 Data : 06/20/21 06:57 06/20/21 06:57 A&P Assessment and plan (1) Severe sepsis: -Secondary to UTI -With ELVA -with rhabdomyolysis -With increased anion gap, normal pH, normal ketones, hyperglycemia -Dehydration -Lactic acidosis -CT scan of the abdomen pelvis shows mild perinephric stranding Plan: -Follow urine cultures shows E. coli pansensitive, blood cultures negative to date -Advance diet as tolerated, soft mechanical diet -Stop vancomycin, continue Zosyn -Monitor blood pressures, maintain MAP more than 65, currently hypertensive -Stop IV hydration -For now full code -Lovenox for DVT prophylaxis -PT OT, speech therapy -Working on placement to care home Status: Acute (2) Lactic acidosis: Status: Acute (3) UTI (urinary tract infection): Status: Acute (4) Hyperglycemia: Status: Acute (5) Acute kidney injury: Status: Acute (6) Rhabdomyolysis: Status: Acute (7) Acute encephalopathy: Status: Acute (8) Pyelonephritis due to Escherichia coli: Status: Acute Attestations Medical Necessity Statement*: Patient needs to be in hospital for management of sepsis. Awaiting placement to care home. Coding Level of Care Code Acute Tire Servicer for [facility] Fwd Diagnoses Severe sepsis A41.9; R65.20 Lactic acidosis E87.2 UTI (urinary tract infection) N39.0 Hyperglycemia R73.9 Acute kidney injury N17.9 Rhabdomyolysis M62.82 Acute encephalopathy G93.40 Pyelonephritis due to Escherichia coli N12; B96.20
[2021-06-22 17:14] LABS: Glucose Point of Care 140 mg/dL (70-110)
--- NOTE | 2021-06-22 17:52 | PC.NURSE ---
Shift Note Frequent safety and comfort rounds continue. Orders and/or nursing care completed as indicated. Patient monitored for response to intervention and treatment(s). Education provided includes treatment plan, medications and need for pericare. Pt requires frequent reminding and encouragement. VSS. Triplett cath draining freely. No issues noted. Will continue to monitor.
[2021-06-22 20:33] LABS: Glucose Point of Care 145 mg/dL (70-110)
[2021-06-22] MEDS: enoxaparin 30 mg/0.3 mL Syringe SUBCUT (20:51)
[2021-06-23] VITALS: BP 166/71; PULSE 83; RESP 18; TEMP 37.1; O2SAT 98
[2021-06-23 04:00] VITALS: BP 168/66; PULSE 76; RESP 18; TEMP 36.6; O2SAT 97
[2021-06-23 06:51] LABS: Glucose Point of Care 107 mg/dL (70-110)
--- NOTE | 2021-06-23 07:09 | PC.NURSE ---
This nurse went in to give IV rocephin and IV was bad on the right wrist. This nurse and Charge nurse Sis both tried to start an IV and was unsuccessful. Trying to get an order for IM rocephin and PO pepcid.
[2021-06-23 08:00] VITALS: PULSE 75; RESP 18; TEMP 36.6; O2SAT 98
[2021-06-23] MEDS: famotidine 20 mg Tablet PO (08:53)
[2021-06-23] MEDS: lidocaine 5% Patch 1 PATCH TOPICAL ×2 (08:53→21:47)
[2021-06-23 11:02] LABS: Glucose Point of Care 137 mg/dL (70-110)
[2021-06-23 12:00] VITALS: BP 168/70; PULSE 71; RESP 18; TEMP 36.7; O2SAT 96
--- NOTE | 2021-06-23 13:47 | PM.PN ---
Subjective Subjective: Interval history: Patient was seen and examined this morning, no acute events overnight. Medications: Reviewed: Yes Vitals/I&O/Wt Last Vital Signs Temp 98.1 F 06/23/21 12:00 Pulse 71 06/23/21 12:00 Resp 18 06/23/21 12:00 BP 168/70 06/23/21 12:00 Pulse Ox 96 06/23/21 12:00 06/22/21 06/23/21 06/23/21 22:59 06:59 14:59 Intake Total 480 / 1250 240 / 240 Output Total 425 / 425 1400 / 1825 Balance 55 / 825 -1400 / -575 240 / 240 Physical Exam Narrative: EXAM NARRATIVE: Alert and awake HENMT: COMMON NORMALS: normocephalic and atraumatic HEAD & SCALP: normocephalic and atraumatic Resp: COMMON NORMALS: clear to auscultation bilaterally AUSCULTATION: clear to auscultation bilaterally Cardio: COMMON NORMALS: regular rate, regular rhythm, S1 normal heart sound present, S2 normal heart sound present, No gallops present (Cardio), No murmurs present (Cardio), No rub (Cardio) and Peripheral pulses 2+ throughout RATE: regular rate RHYTHM: regular rhythm HEART SOUNDS: S1 normal heart sound present and S2 normal heart sound present PERIPHERAL PULSES: Peripheral pulses 2+ throughout GI: COMMON NORMALS: Normal to inspection, nondistended, normoactive bowel sounds present, Soft to palpation, non-tender, No hepatosplenomegaly present and no masses AUSCULTATION: Yes normoactive bowel sounds PALPATION: Yes Soft to palpation and Yes No hepatosplenomegaly present RECTAL EXAM: deferred Extremity: COMMON NORMALS: no clubbing, cyanosis or edema and no pedal edema Urinary Catheter Management^: Triplett: Cath Placed During This Visit: yes Reason for Continuing Indwelling Catheter: Other Urinary Catheter Date of Insertion: 06/19/21 Urinary Catheter Time of Insertion: 14:10 Data : 06/20/21 06:57 06/20/21 06:57 A&P Assessment and plan (1) Severe sepsis: -Secondary to UTI -With ELVA -with rhabdomyolysis -With increased anion gap, normal pH, normal ketones, hyperglycemia -Dehydration -Lactic acidosis -CT scan of the abdomen pelvis shows mild perinephric stranding Plan: -Follow urine cultures shows E. coli pansensitive, blood cultures negative to date -Advance diet as tolerated, soft mechanical diet -Stop vancomycin, Zosyn, ceftriaxone -Patient is a hard stick difficulty with IV access, she has been switched to p.o. levofloxacin 500 daily for the E. coli. -Monitor blood pressures, maintain MAP more than 65, currently hypertensive -Stop IV hydration -For now full code -Lovenox for DVT prophylaxis -PT OT, speech therapy -Working on placement to [place] [facility] Status: Acute (2) Lactic acidosis: Status: Acute (3) UTI (urinary tract infection): Status: Acute (4) Hyperglycemia: Status: Acute (5) Acute kidney injury: Status: Acute (6) Rhabdomyolysis: Status: Acute (7) Acute encephalopathy: Status: Acute (8) Pyelonephritis due to Escherichia coli: Status: Acute Attestations Medical Necessity Statement*: Patient is currently awaiting safe discharge to [place] [facility]. Coding Level of Care Code Acute Geographic Information Systems Manager for [facility] Fwd Exam Detailed Diagnoses Severe sepsis A41.9; R65.20 Lactic acidosis E87.2 UTI (urinary tract infection) N39.0 Hyperglycemia R73.9 Acute kidney injury N17.9 Rhabdomyolysis M62.82 Acute encephalopathy G93.40 Pyelonephritis due to Escherichia coli N12; B96.20
[2021-06-23 15:42] VITALS: BP 149/62; PULSE 73; RESP 18; TEMP 36.7; O2SAT 96
[2021-06-23 16:59] LABS: Glucose Point of Care 130 mg/dL (70-110)
--- NOTE | 2021-06-23 18:51 | PC.NURSE ---
Report to property maintenance technician at this time
[2021-06-23 20:00] VITALS: BP 167/67; PULSE 87; RESP 17; TEMP 37.1; O2SAT 95
[2021-06-23] MEDS: enoxaparin 30 mg/0.3 mL Syringe SUBCUT (21:48)
[2021-06-24] VITALS: BP 176/69; PULSE 82; RESP 17; TEMP 37.5; O2SAT 93
[2021-06-24 04:00] VITALS: BP 178/72; PULSE 87; RESP 18; TEMP 37.2; O2SAT 95
[2021-06-24] MEDS: levoFLOXacin 500 mg Tablet PO (05:22)
[2021-06-24 06:33] LABS: Glucose Point of Care 119 mg/dL (70-110)
[2021-06-24 08:00] VITALS: BP 172/80; PULSE 80; RESP 18; TEMP 36.7; O2SAT 96
[2021-06-24] MEDS: famotidine 20 mg Tablet PO (08:28)
--- NOTE | 2021-06-24 09:23 | PC.SOCIAL ---
IMM updated IMM dated and initialed, copy made and given to patient.
[2021-06-24] MEDS: amlodipine 5 mg Tablet PO (10:33)
[2021-06-24 11:01] LABS: Glucose Point of Care 109 mg/dL (70-110)
[2021-06-24 12:00] VITALS: BP 180/79; PULSE 76; RESP 18; TEMP 36.7; O2SAT 97
--- NOTE | 2021-06-24 12:30 | P.DS_ITS ---
Discharge Providers Date of Admission: 06/19/21 17:01 Date of Discharge: June 24, 2021 Attending Provider at Admission: Jame Elliott MD Attending Provider at Discharge: Alessandro Martin MD Diagnoses at Discharge Discharge Diagnosis (1) Severe sepsis: Status: Acute (2) Lactic acidosis: Status: Acute (3) UTI (urinary tract infection): Status: Acute (4) Hyperglycemia: Status: Acute (5) Acute kidney injury: Status: Acute (6) Rhabdomyolysis: Status: Acute (7) Acute encephalopathy: Status: Acute (8) Pyelonephritis due to Escherichia coli: Status: Acute Reason for Visit Reason for Visit: ALOC, weakness, poss UTI Hospital Course Hospital Course 80 year old female with a past medical history of hypertension, dementia, who presents to [facility] due to weakness and altered mental status. She was admitted for the management of severe sepsis secondary to UTI and pyelonephritis.Urine culture grew:E. coli pansensitive, blood cultures negative.CT scan of the abdomen pelvis shows mild perinephric stranding. She was kept on broad-spectrum antibiotics, to which she responded well. She was also managed for prerenal ELVA, rhabdomyolysis, responded well to IV hydration.At the time of discharge she was hemodynamically stable afebrile,ELVA and rhabdomyolysis, patient was persistently hypertensive and hence was started on amlodipine 5 mg p.o. daily and was continued on discharge. At the time of disch arge acute encephalopathy had resolved. Patient went to residential.Given her advanced dementia. Patient will continue to follow with primary care physician as an outpatient. Physical Exam Narrative: EXAM NARRATIVE: Alert and awake HENMT: COMMON NORMALS: normocephalic and atraumatic HEAD & SCALP: normocephalic and atraumatic Resp: COMMON NORMALS: clear to auscultation bilaterally AUSCULTATION: clear to auscultation bilaterally Cardio: COMMON NORMALS: regular rate, regular rhythm, S1 normal heart sound present, S2 normal heart sound present, No gallops present (Cardio), No murmurs present (Cardio), No rub (Cardio) and Peripheral pulses 2+ throughout RATE: regular rate RHYTHM: regular rhythm HEART SOUNDS: S1 normal heart sound present and S2 normal heart sound present PERIPHERAL PULSES: Peripheral pulses 2+ throughout GI: COMMON NORMALS: Normal to inspection, nondistended, normoactive bowel sounds present, Soft to palpation, non-tender, No hepatosplenomegaly present and no masses AUSCULTATION: Yes normoactive bowel sounds PALPATION: Yes Soft to palpation and Yes No hepatosplenomegaly present RECTAL EXAM: deferred Extremity: COMMON NORMALS: no clubbing, cyanosis or edema and no pedal edema Urinary Catheter Management^: Triplett: Cath Placed During This Visit: yes Reason for Continuing Indwelling Catheter: Acute Urinary Retention or Obstruction Urinary Catheter Date of Insertion: 06/19/21 Urinary Catheter Time of Insertion: 14:10 Discharge Data Data Completed and Pending: Completed Studies During Hospitalization Category Date Time Status CT head wo con* 7 0450 Urgent Cat Scan 06/19/21 18:[address] kidney stone 7 4176 Urgent Cat Scan 06/19/21 18:19 Completed XR chest 1V angeline ble [id number] Stat Exams 06/19/21 13:41 Completed XR hip LT 2-3V wo /w pel* [id number] Urge nt Exams 06/20/21 03:45 Completed US renal BI* [id number] Urgent Ultrasound 06/20/21 16:59 Completed Pending at discharge Category Date Time Status Blood Culture Sta t Lab 06/19/21 15:55 Results SARS Covid-2 Anti gen Routine Lab 06/24/21 12:21 Ordered Labs from last 24 hours 06/24/21 06/24/21 06/24/21 12:15 10:43 06:23 POC Glucose 109 119 H SARS-CoV-2 Ag (Rap id) Pending 06/23/21 16:53 POC Glucose 130 H SARS-CoV-2 Ag (Rap id) Vitals: Last Vital Signs Temp 98.0 F 06/24/21 12:00 Pulse 76 06/24/21 12:00 Resp 18 06/24/21 12:00 BP 180/79 06/24/21 12:00 Pulse Ox 97 06/24/21 12:00 Discharge Plan Discharge Patient Disposition: Home Condition: Stable Prescriptions: New amlodipine 5 mg tablet 5 mg PO DAILY Qty: 30 RF: 0 acetaminophen 325 mg Tablet 650 mg PO Q6H PRN (Reason: Mild/Mod Pain Or Temp >/= 101) 7 Days Qty: 30 RF: 0 No Action No Known Home Medications RF: 0 Discharge Orders: Discharge Order (Routine); Ordered 06/24/21 Ordered By: Alessandro Martin Discharge Diet: Regular Discharge Activity: Increase activity as tolerated Patient Instructions: Amlodipine (By mouth), Opioid Safety, Pyelonephritis Discharge Attestations Time Spent in Discharge Care*: less than 30 min Specific Discharge Activities: educating patient, educating and/or supporting family/caregiver, discussing with pcp/other providers, discussing with adult protective caseworker/social workers/dc planners, documenting/other paperwork and evaluating patient/reviewing data Status at Discharge: Cognitive status at discharge: cognitively intact , Behavioral status at discharge: cooperative , Functional status at discharge: independent ambulation Overall status at discharge: patient is back to baseline Quality Metrics Clinical Quality Measures During this hospital stay, did patient experience: None Coding Level of Care Code Acute Chg FW DC note Diagnoses Severe sepsis A41.9; R65.20 Lactic acidosis E87.2 UTI (urinary tract infection) N39.0 Hyperglycemia R73.9 Acute kidney injury N17.9 Rhabdomyolysis M62.82 Acute encephalopathy G93.40 Pyelonephritis due to Escherichia coli N12; B96.20
[2021-06-24 12:56] LABS: SARS Covid-2 Antigen Negative (Negative)
--- NOTE | 2021-06-24 14:46 | PC.NURSE ---
removed patient's lambert catheter per care nurse MACARENA Agustin
--- NOTE | 2021-06-24 15:00 | PC.NURSE ---
Report to Letty WANG at [facility].
[2021-06-24 15:08] VITALS: BP 167/76; PULSE 76; RESP 18; TEMP 36.7; O2SAT 97
--- NOTE | 2021-06-24 15:09 | PC.NURSE ---
Patient assisted into wheel chair to be transported to [facility] at this time. Patient is alert to self and respirations even and non-labored on room. Patient's belongings sent with patient. Including clothes.
== END 2021-06-24 15:15 | disposition home or self-care (01) | DRG 871 ==
LOC: ER 13:41 → MEDSURG 19:17
PROVIDERS: Admitting Provider Family Medicine; Emergency Provider Family Medicine; Visit Provider Internal Medicine
DX: A41.51 Sepsis due to Escherichia coli [E. coli] (principal); G93.41 Metabolic encephalopathy; E87.2 Acidosis; N17.9 Acute kidney failure, unspecified; M62.82 Rhabdomyolysis; G93.40 Encephalopathy, unspecified; N12 Tubulo-interstitial nephritis, not specified as acute or chronic; N39.0 Urinary tract infection, site not specified; R65.20 Severe sepsis without septic shock; N16 Renal tubulo-interstitial disorders in diseases classified elsewhere; R73.9 Hyperglycemia, unspecified; I10 Essential (primary) hypertension; F03.90 Unspecified dementia, unspecified severity, without behavioral disturbance, psychotic disturbance, mood disturbance, and anxiety; R53.81 Other malaise; W19.XXXA Unspecified fall, initial encounter; Y92.239 Unspecified place in hospital as the place of occurrence of the external cause; Z87.440 Personal history of urinary (tract) infections
CPT/HCPCS: 36415; 36416; 36600; 51702; 70450; 71045; 73502; 74176; 76770; 80053; 81001; 82009; 82550; 82803; 82962; 83036; 83605; 83690; 83735; 83880; 84145; 84443; 85025; 86140; 87040; 87077; 87086; 87186; 87426; 92526; 92610; 93005; 94664; 96365; 96366; 96367; 96372; 97161; 97165; 97530; 99285; J0696; J1650; J2543; J3370; J3480; J3490; J7030; J7050

== ENCOUNTER 2021-08-05 08:27 | Outpatient (CLI) | payer MEDICARE, MEDICAID, SELFPAY | END 2021-08-05 08:28 | disposition home or self-care (01) | LOC: WOUND 08:29 | PROVIDERS: PCP Internal Medicine; Visit Provider Thoracic Surgery (Cardiothoracic Vascular Surgery) | DX: I96 Gangrene, not elsewhere classified (principal); L89.314 Pressure ulcer of right buttock, stage 4; I10 Essential (primary) hypertension | CPT/HCPCS: 11043; 11046; 87070; 87077; 87176; 87186; 87205; 99213 ==

== ENCOUNTER 2021-08-19 08:47 | Outpatient (CLI) | payer MEDICARE, MEDICAID, SELFPAY | END 2021-08-19 08:48 | disposition home or self-care (01) | LOC: WOUND 08:48 | PROVIDERS: PCP Internal Medicine; Visit Provider Nurse Practitioner Family | DX: I96 Gangrene, not elsewhere classified (principal); L89.314 Pressure ulcer of right buttock, stage 4; I10 Essential (primary) hypertension | CPT/HCPCS: 11042; 11045 ==